=== PATIENT | female | born 1935 | race Caucasian/White ===

== ENCOUNTER 2017-03-27 07:23 | Observation (INO) | payer MEDICARE, BC ==
[~2017-03-27 07:23] MED LIST: Bupivacaine 0.5% 10 ML SDV ONE; Lactated Ringers 1,000 ML IV SCH; Lidocaine 2% 5 ML SDV ONE; Midazolam 1 MG/ML 2 ML SDV ONE; Ondansetron 4 MG/2 ML SDV ONE; Propofol 200 MG/20 ML SDV ONE; ceFAZolin 1 GM in Premix Bag 1 BAG IV ONE; fentaNYL 100 MCG/2 ML SDV ONE
--- NOTE | 2017-03-27 08:00 | PCM.PREANE ---
Preanesthetic Assessment - Anesthesia/Transfusion/Family Hx Anesthesia History: Prior Anesthesia Without Reaction Other Type of Anesthesia Reaction Comment: Get sick post anesthesia, no known family history of problems Family History of Anesthesia Reaction: No Transfusion History: No Prior Transfusion(s) Intubation History: Unknown - Review of Systems General: No Symptoms Pulmonary: No Symptoms Cardiovascular: No Symptoms Gastrointestinal: No Symptoms Neurological: No Symptoms Other: Reports: None - Physical Assessment Height: 1.63 m Weight: 63.049 kg ASA Class: 2 Mental Status: Alert & Oriented x3 Airway Class: Mallampati = 2 Dentition: Reports: Normal Dentition Thyro-Mental Finger Breadths: 2 Mouth Opening Finger Breadths: 3 ROM/Head Extension: Limited/Partial Lungs: Clear to Auscultation, Normal Respiratory Effort Cardiovascular: Regular Rate, Regular Rhythm - Allergies Allergies/Adverse Reactions: Allergies Allergy/AdvReac Type Severity Reaction Status Date / Time Sulfa (Sulfonamide Allergy Rash Verified 12/10/14 14:54 Antibiotics) - Blood Blood Available: No - Anesthesia Plan Pre-Op Medication Ordered: None - Acknowledgements Anesthesia Type Planned: General Anesthesia Pt an Appropriate Candidate for the Planned Anesthesia: Yes Alternatives and Risks of Anesthesia Discussed w Pt/Guardian: Yes Pt/Guardian Understands and Agrees with Anesthesia Plan: Yes PreAnesthesia Questionnaire HEENT History: Reports: Other (See Below) Other HEENT History: glasses, retinal melanoma lt eye, Cardiovascular History: Reports: Other (See Below) (takes lisinopril for kidney protection from DM) Gastrointestinal History: Reports: None Genitourinary History: Reports: Hydronephrosis (with ureteropelvic juction obstruction), Renal Calculus (at least 4 times) [employer] History: Reports: Musculoskeletal History: Reports: Back Pain, Chronic, Osteoarthritis Neurological History: Reports: Migraines Endocrine/Metabolic History: Reports: Diabetes, Type II, Obesity/BMI 30+ Other Endocrine/Metabolic History: hx type II diabetes in the past. 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 Dermatologic History: Reports: Other (See Below) Other Dermatologic History: keratosis - Past Surgical History Head Surgeries/Procedures: Reports: None HEENT Surgical History: Reports: Cataract Surgery GI Surgical History: Reports: Cholecystectomy Female Surgical History: Reports: Hysterectomy, Lithotripsy/ESWL Musculoskeletal Surgical History: Reports: Knee Replacement, Shoulder Surgery ( right shoulder surgery) Other Musculoskeletal Surgeries/Procedures:: aman knee replacement - SUBSTANCE USE Smoking Status *Q: Former Smoker Days Per Week of Alcohol Use: 0 Number of Drinks Per Day: 0 Total Drinks Per Week: 0 Recreational Drug Use History: No - HOME MEDS Home Medications: Home Meds Aspirin [Mills Aspirin] 81 mg PO ASDIRECTED 03/20/17 [History] Lisinopril 10 mg PO DAILY 03/20/17 [History] Triamcinolone Acetonide [Triamcinolone Acetonide 0.1% Oint] 1 applic TOP ASDIRECTED PRN 03/20/17 [History] - CURRENT (IN HOUSE) MEDS Current Meds: Current Medications Lactated Ringer's (Ringers, Lactated) 1,000 mls @ 125 mls/hr IV ASDIRECTED CARSON Discontinued Medications Bupivacaine HCl (Sensorcaine-Mpf 0.5%) Confirm Administered Dose 20 ml .ROUTE .STK-MED ONE Stop: 03/27/17 07:21 Fentanyl (Sublimaze) Confirm Administered Dose 200 mcg .ROUTE .STK-MED ONE Stop: 03/27/17 06:57 Cefazolin Sodium/Dextrose 1 gm (/ Premix) 50 mls @ 100 mls/hr IV ONETIME ONE Stop: 03/27/17 07:29 Lidocaine (Xylocaine-Mpf 2%) Confirm Administered Dose 5 ml .ROUTE .STK-MED ONE Stop: 03/27/17 06:57 Midazolam HCl (Versed 1 Mg/Ml) Confirm Administered Dose 2 mg .ROUTE .STK-MED ONE Stop: 03/27/17 06:58 Ondansetron HCl (Zofran) Confirm Administered Dose 4 mg .ROUTE .STK-MED ONE Stop: 03/27/17 06:57 Propofol (Diprivan 20 Ml) Confirm Administered Dose 200 mg .ROUTE .STK-MED ONE Stop: 03/27/17 06:57
[2017-03-27] MEDS ORDERED: ceFAZolin 1 GM Vial ONE ×2 (08:32→09:06)
[2017-03-27] MEDS ORDERED: Sodium Chloride 0.9% 20 ML ONE (09:06)
[2017-03-27] MEDS ORDERED: ePHEDrine 50 MG/ML SDV ONE (09:16)
[2017-03-27] MEDS ORDERED: Morphine 10 MG/ML Syringe IVPUSH PRN ×2 (10:09→17:35)
--- NOTE | 2017-03-27 10:14 | PCM.OPNOTE ---
- General Post-Op/Procedure Note Date of Surgery/Procedure: 03/27/17 Operative Procedure(s): Repair recurrent incarcerated umbilical hernia with 8.3 cm Ventralex mesh Pre Op Diagnosis: Recurrent incarcerated umbilical hernia Post-Op Diagnosis: Same Anesthesia Technique: General LMA (ASA II) Primary Surgeon: Rashi Monge Hand Sewer Shoes: Honey [place] Fluid Replacement, Intraop: 1,200 EBL in mLs: 10 Condition: Good Free Text/Narrative:: Dictation [id number]
[2017-03-27] MEDS ORDERED: Lactated Ringers 1,000 ML IV SCH (10:15)
[2017-03-27] MEDS: fentaNYL 100 MCG/2 ML SDV IVPUSH PRN ×3 (10:27→12:00)
[2017-03-27] MEDS: Acetaminophen/HYDROcodone 325-5 MG Tab PO PRN ×3 (12:30→18:18)
[2017-03-27] MEDS ORDERED: Ketorolac 30 MG/ML SDV IVPUSH ONE (13:20)
--- NOTE | 2017-03-27 17:37 | PCM.SN ---
- Free Text/Narrative Note: Patient still having significant discomfort requiring parenteral analgesics. Will admit OBS tonight for pain control and anticipate discharge tomorrow.
[2017-03-28 00:32] VITALS: BP 132/63
--- NOTE | 2017-03-28 08:07 | OR ---
SURGEON: Rashi Monge M.D. DATE OF PROCEDURE: 03/27/2017 OPERATION PERFORMED: Repair of recurrent incarcerated umbilical hernia. 911 DISPATCHER: ROSALES Vega student. ANESTHESIA: General LMA. ASA CLASSIFICATION: II. PREOPERATIVE DIAGNOSIS: Recurrent incarcerated umbilical hernia. POSTOPERATIVE DIAGNOSIS: Recurrent incarcerated umbilical hernia. ESTIMATED BLOOD LOSS: 10 mL. INTRAOPERATIVE FLUID REPLACEMENT: 1200 mL of crystalloid. DESCRIPTION OF PROCEDURE: The patient was taken to the operating room and placed on the operating table in the supine position. Time-out was called for appropriate identification of the patient and procedure. Thigh-high TEDs and sequential compression boots had been placed. Following satisfactory attainment of general anesthesia with placement of an LMA, the abdomen was prepped with DuraPrep solution. Sterile drapes were applied. The skin incision was marked out extending to the left around the umbilicus. The skin was then infiltrated with 10 mL of 0.5% Marcaine solution. The skin incision was made and deepened into the subcutaneous tissue. Hemostasis was obtained with the use of electrocautery. The incision was deepened through the subcutaneous tissue with the use of electrocautery. Incarcerated omentum was noted. This was removed from the hernia sac with a combination of sharp and blunt dissection. The defect did extend a little farther inferiorly, so all defects were incorporated into one incision. The wound was then inspected for hemostasis, and bleeding sites were electrocoagulated. The defect was then measured and was 3 x 6 cm in size. An 8.3 cm Ventralex mesh was brought to the operating table. This was soaked in 1% Ancef solution. It was then placed in an underlay technique and secured to the superior fascia with interrupted 0 Ethibond sutures. All sutures were placed under direct vision and held with hemostats until the final suture had been placed. Sutures were then secured. The patient was given a Valsalva maneuver to 40 cm of water, and the repair was solid. I did not see any weak points in the repair. The midline fascia was then reapproximated over the mesh after irrigating the mesh with 1% Ancef solution. This was accomplished with a running 0 Vicryl suture. The subcutaneous tissue was closed with running 0 Vicryl. The skin edges were reapproximated with subcuticular 4-0 Monocryl reinforced with Steri-Strips. Sterile Tegaderm pad was placed as a dressing. Sponge, needle, and instrument counts were all correct. Following emergence from anesthesia and extubation, the patient was taken to recovery room in stable condition. RONY MCDONALD /[id number]
== END 2017-03-28 09:35 ==
LOC: MW.SDS 07:23 → MW.OB 16:20
PROVIDERS: ADMIT Surgery; ATTEND Surgery
DX: K42.0 Umbilical hernia with obstruction, without gangrene (principal); M17.12 Unilateral primary osteoarthritis, left knee; I10 Essential (primary) hypertension; E11.9 Type 2 diabetes mellitus without complications; E66.9 Obesity, unspecified; Z87.442 Personal history of urinary calculi; Z85.820 Personal history of malignant melanoma of skin; Z87.891 Personal history of nicotine dependence; Z88.2 Allergy status to sulfonamides; Z79.82 Long term (current) use of aspirin; Z79.899 Other long term (current) drug therapy; Z96.653 Presence of artificial knee joint, bilateral; Z90.49 Acquired absence of other specified parts of digestive tract; Z90.710 Acquired absence of both cervix and uterus; Z98.890 Other specified postprocedural states; Z68.32 Body mass index [BMI] 32.0-32.9, adult
CPT/HCPCS: 49587; 82962; A9270; C1781; G0378; J0690; J1885; J2250; J2405; J3010; J7120; 00830; J2704